=== PATIENT | female | born 1995 | race Caucasian/White ===

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

== ENCOUNTER → 2020-08-06 | Outpatient (CLI) | payer OTHER ==
[~2020-08-06] MED LIST: MACROBID 100 M100 MG PO; PRENATAL VITAM1 EAC8 PO
== END ==
LOC: LAB 17:52
DX: N91.2 Amenorrhea, unspecified (principal)
CPT/HCPCS: 84702

== ENCOUNTER → 2021-03-03 | Outpatient (CLI) | payer OTHER | LOC: GENOP 14:24 | DX: O47.00 False labor before 37 completed weeks of gestation, unspecified trimester (principal); Z3A.33 33 weeks gestation of pregnancy | CPT/HCPCS: 81001; G0463 ==

== ENCOUNTER 2021-04-07 15:09 | Inpatient (IN) | payer OTHER ==
[~2021-04-07] VITALS: Ht 144.8 cm; Wt 51.3 kg
[2021-04-07 16:17] LABS: HEMOGLOBIN 11.7 gm/dl (12.3-15.3); RED BLOOD COUNT 3.89 M/UL (4.00-5.10); WHITE BLOOD COUNT 9.5 K/UL (4.5-11.0)
[2021-04-07] MEDS ORDERED: IBUPROFEN600 MG PO (20:42)
[2021-04-07] MEDS ORDERED: FERROUS SULFAT325 MG PO (20:42)
[2021-04-07] MEDS ORDERED: COLACE 100MG C100 MG PO (20:42)
[2021-04-08 06:18] LABS: HEMOGLOBIN 10.3 gm/dl (12.3-15.3)
[2021-04-09] MEDS ORDERED: HYDROCODON-ACE1 EAC4 PO (08:33)
== END 2021-04-09 14:21 | disposition home or self-care (01) | DRG 805 ==
LOC: GENOP 15:09 → OB 15:56
PROVIDERS: ADMIT Obstetrics & Gynecology
PROC: 10E0XZZ Delivery of Products of Conception, External Approach (ICD-10-PCS; principal; 2021-04-07)
PROC: 3E033VJ Introduction of Other Hormone into Peripheral Vein, Percutaneous Approach (ICD-10-PCS; 2021-04-07)
PROC: 8E0ZXY6 Isolation (ICD-10-PCS; 2021-04-07)
PROC: 4A1HXCZ Monitoring of Products of Conception, Cardiac Rate, External Approach (ICD-10-PCS; 2021-04-07)
DX: O42.92 Full-term premature rupture of membranes, unspecified as to length of time between rupture and onset of labor (principal); U07.1 COVID-19; Z37.0 Single live birth; O98.52 Other viral diseases complicating childbirth; Z3A.38 38 weeks gestation of pregnancy; Z88.8 Allergy status to other drugs, medicaments and biological substances; Z91.013 Allergy to seafood; Z91.018 Allergy to other foods; Z87.891 Personal history of nicotine dependence
CPT/HCPCS: 36415; 85014; 85018; 85025; J2590; J7030; J7120; U0002

== ENCOUNTER → 2021-07-28 | Outpatient (CLI) | payer OTHER ==
[~2021-07-28] MED LIST changes: +COLACE 100MG C100 MG PO; +FERROUS SULFAT325 MG PO; +HYDROCODON-ACE1 EAC4 PO; +IBUPROFEN600 MG PO
== END ==
LOC: LAB 13:38
DX: Z20.822 Contact with and (suspected) exposure to COVID-19 (principal)
CPT/HCPCS: U0003